=== PATIENT | female | born 1980 | race African-American/Black ===

== ENCOUNTER 2017-07-05 17:28 | Emergency (ER) | payer MEDICAID, OTHER ==
[~2017-07-05 17:28] MED LIST: OXYC-360 PO; PYRI200T4 PO; SULF1TAB47 PO; Z.0.NO CURRENT MEDS
[2017-07-05 17:29] VITALS: BP 133/74; PULSE 115; RESP 14; TEMP 98.2; O2SAT 97
[2017-07-05 18:05] VITALS: RESP 18; O2SAT 98
[2017-07-05 18:15] VITALS: BP_SYST 101; BP_SYST 108; BP_DIAS 67; BP_DIAS 70; BP_DIAS 73; RESP 18
[2017-07-05] MEDS ORDERED: ONDANSETRON HCL 4 MG/2 ML VIAL IV PUSH ONE (18:15)
--- NOTE | 2017-07-05 18:21 | PD ---
HPI Chief Complaint: Medical Clearance Time Seen by Provider: 17:44 Travel History International Travel<30 days: No Contact w/Intl Traveler<30days: No Traveled to known affect area: No History of Present Illness HPI This is a 36-year-old female who presents today with complaints of "wooziness". Patient also reports intermittent nausea. She was concerned that she may be as she last had a period in April. Patient states that she took a home test and it looked like there was a faint line making a positive. She then reports she went to the crisis Center and was told that her test was negative. She reports fullness in her stomach. She denies any true abdominal pain. She reports no vaginal discharge or vaginal bleeding. There is no urinary frequency or dysuria. There are no other complaints time my examination. PFSH Past Medical History Genitourinary: Yes (CERVICAL DYSPLASIA) Influenza Vaccination: No ?: Unknown LMP: 05/04/2017 : 3 Para: 2 Miscarriage: 1 : 0 Past Surgical History Section: Yes (x2) Social History Alcohol Use: No Tobacco Use: Yes (0.5 ppd) Substance Use: No Allergies-Medications (Allergen,Severity, Reaction): Coded Allergies: penicillin G (Unverified Allergy, Severe, Hives, 02/22/17) Reported Meds & Prescriptions Reported Meds & Active Scripts Active No Active Prescriptions or Reported Medications Review of Systems Except as stated in HPI: all other systems reviewed are Neg General / Constitutional: No: Fever, Chills HENT: Positive: Lightheadedness, No: Headaches, Congestion, Neck Stiffness, Neck Pain Cardiovascular: Positive: Palpitations, No: Chest Pain or Discomfort, Irregular Rhythm (occasional) Respiratory: No: Cough, Shortness of Breath Gastrointestinal: Positive: Other ("full feeling" in her abdomen), No: Nausea, Vomiting, Abdominal Pain Genitourinary: No: Frequency, Dysuria, Incontinence Musculoskeletal: No: Weakness, Pain Neurologic: Positive: Dizziness (occasional), No: Weakness, Headache, Paresthesia, Sensory Disturbance Psychiatric: No: Substance Abuse Physical Exam Narrative GENERAL: Well-nourished, well-developed patient,. SKIN: Focused skin assessment warm/dry. HEAD: Normocephalic. EYES: No scleral icterus. No injection or drainage. NECK: Supple, trachea midline. No JVD or lymphadenopathy. CARDIOVASCULAR: Regular rate and rhythm without murmurs, gallops, or rubs. RESPIRATORY: Breath sounds equal bilaterally. No accessory muscle use. GASTROINTESTINAL: Abdomen soft, non-tender, nondistended. MUSCULOSKELETAL: No cyanosis, or edema. BACK: Nontender without obvious deformity. No CVA tenderness. Data Data Last Documented VS Vital Signs Date Time Temp Pulse Resp B/P (MAP) Pulse Ox O2 Delivery O2 Flow Rate FiO2 07/05/17 18:15 79 18 101/70 (80) 82 18 108/67 (81) 90 18 108/73 (85) 07/05/17 18:05 98 Room Air 07/05/17 17:29 98.2 Orders Orders Complete Blood Count With Diff (07/05/17 18:00) Comprehensive Metabolic Panel (07/05/17 18:00) Lipase (07/05/17 18:00) Urinalysis - C+S If Indicated (07/05/17 18:00) Thyroid Stimulating Hormone (07/05/17 18:00) Iv Access Insert/Monitor (07/05/17 18:00) Ecg Monitoring (07/05/17 18:00) Oximetry (07/05/17 18:00) Ed Urine Pregnancytest Poc (07/05/17 18:00) Orthostatic Vital Signs (07/05/17 18:00) Ondansetron Inj (Zofran Inj) (07/05/17 18:15) Labs Laboratory Tests Test 07/05/17 16:07 White Blood Count 6.7 TH/MM3 Red Blood Count 4.08 MIL/MM3 Hemoglobin 11.8 GM/DL Hematocrit 35.8 % Mean Corpuscular Volume 87.8 FL Mean Corpuscular Hemoglobin 28.9 PG Mean Corpuscular Hemoglobin Concent 32.9 % Red Cell Distribution Width 13.8 % Platelet Count 189 TH/MM3 Mean Platelet Volume 8.7 FL Neutrophils (%) (Auto) 39.4 % Lymphocytes (%) (Auto) 46.1 % Monocytes (%) (Auto) 11.7 % Eosinophils (%) (Auto) 2.5 % Basophils (%) (Auto) 0.3 % Neutrophils # (Auto) 2.7 TH/MM3 Lymphocytes # (Auto) 3.1 TH/MM3 Monocytes # (Auto) 0.8 TH/MM3 Eosinophils # (Auto) 0.2 TH/MM3 Basophils # (Auto) 0.0 TH/MM3 CBC Comment DIFF FINAL Differential Comment Urine Color YELLOW Urine Turbidity CLEAR Urine pH 5.5 Urine Specific [place] 1.034 Urine Protein TRACE mg/dL Urine Glucose (UA) NEG mg/dL Urine Ketones NEG mg/dL Urine Occult Blood NEG Urine Nitrite NEG Urine Bilirubin NEG Urine Urobilinogen 2.0 MG/DL Urine Leukocyte Esterase NEG Urine RBC 1 /hpf Urine WBC LESS THAN 1 /hpf Urine Squamous Epithelial Cells 2 /hpf Urine Mucus MANY /lpf Microscopic Urinalysis Comment CULT NOT INDICATED Blood Urea Nitrogen 14 MG/DL Creatinine 0.89 MG/DL Random Glucose 86 MG/DL Total Protein 6.9 GM/DL Albumin 3.5 GM/DL Calcium Level 8.6 MG/DL Alkaline Phosphatase 99 U/L Aspartate Amino Transf (AST/SGOT) 24 U/L Alanine Aminotransferase (ALT/SGPT) 25 U/L Total Bilirubin 0.3 MG/DL Sodium Level 139 MEQ/L Potassium Level 3.8 MEQ/L Chloride Level 106 MEQ/L Carbon Dioxide Level 29.1 MEQ/L Anion Gap 4 MEQ/L Estimat Glomerular Filtration Rate 88 ML/MIN Lipase 296 U/L Thyroid Stimulating Hormone 3rd Gen 0.388 uIU/ML MDM Medical Decision Making Medical Screen Exam Complete: Yes Emergency Medical Condition: Yes Differential Diagnosis Metabolic arrangement versus anemia versus UTI Narrative Course 36 year old female presents today with metastases of wooziness and dizziness and nausea. The patient thought she was . The patient's urine test is negative here. She has a soft abdomen. She denies any vaginal discharge or vaginal bleeding. She does report she reports that she feels her stomach is getting bigger. Labs are pending at this time. She'll be signed out to Dr. Pee Dickson, physician replacing me at the time of shift change. Disposition will be per him. Diagnosis Primary Impression: Nausea Additional Impression: intermittent dizziness Additional Instructions: [place] diet. Drink plenty of fluids. Advance as tolerated. Return if feeling worse or any other reason the concerns her. Med/Other Pt SpecificInfo: Prescription(s) given Scripts No Active Prescriptions or Reported Meds Disposition: 01 DISCHARGE HOME Condition: Stable Jadon Alonso MD Jul 05, 2017 18:21
[2017-07-05 18:32] LABS: AUTOMATED NEUTROPHIL # 2.7 TH/MM3 (1.8-7.7); BASOPHIL % 0.3 % (0.0-2.0); EOSINOPHIL # 0.2 TH/MM3 (0-0.4); EOSINOPHIL % 2.5 % (0.0-4.0); HEMATOCRIT 35.8 % (35.0-46.0); HEMOGLOBIN 11.8 GM/DL (11.6-15.3); LYMPH % 46.1 % (9.0-44.0); LYMPHOCYTE # 3.1 TH/MM3 (1.0-4.8); MEAN CELL VOLUME 87.8 FL (80.0-100.0); MEAN CORPUSCULAR HEMOGLOBIN 28.9 PG (27.0-34.0); MEAN CORPUSCULAR HGB CONC 32.9 % (32.0-36.0); MEAN PLATELET VOLUME 8.7 FL (7.0-11.0); MONO % 11.7 % (0.0-8.0); MONOCYTE # 0.8 TH/MM3 (0-0.9); NEUT % 39.4 % (16.0-70.0); PLATELET COUNT 189 TH/MM3 (150-450); RED BLOOD COUNT 4.08 MIL/MM3 (4.00-5.30); RED CELL DISTRIBUTION WIDTH 13.8 % (11.6-17.2); WHITE BLOOD COUNT 6.7 TH/MM3 (4.0-11.0)
[2017-07-05 18:47] LABS: BILIRUBIN, URINE NEG (NEG); BLOOD, URINE NEG (NEG); GLUCOSE,URINE NEG (NEG); KETONE, URINE NEG (NEG); MUCUS URINE MANY /lpf (OCC); NITRITE,URINE NEG (NEG); PH, URINE 5.5 (5.0-8.5); SQUAMOUS EPITHELIAL CELL URINE 2 /hpf (0-5); URINE COLOR YELLOW (YELLW/STRAW); URINE LEUKOCYTE ESTERASE NEG (NEG)
[2017-07-05 18:48] LABS: ALBUMIN 3.5 GM/DL (3.4-5.0); AST (GOT) 24 U/L (15-37); BICARBONATE 29.1 MEQ/L (21.0-32.0); BLOOD UREA NITROGEN 14 MG/DL (7-18); CALCIUM 8.6 MG/DL (8.5-10.1); CHLORIDE 106 MEQ/L (98-107); CREATININE 0.89 MG/DL (0.50-1.00); GLOMERULAR FILTRATION RATE 88 ML/MIN (>89); GLUCOSE,RANDOM 86 MG/DL (74-106); LIPASE 296 U/L (73-393); SODIUM (NA) 139 MEQ/L (136-145)
[2017-07-05 19:00] LABS: ALKALINE PHOSPHATASE 99 U/L (45-117); ALT (GPT) 25 U/L (10-53); TOTAL BILIRUBIN ADULT 0.3 MG/DL (0.2-1.0); TOTAL PROTEIN 6.9 GM/DL (6.4-8.2)
== END 2017-07-05 20:01 | disposition home or self-care (01) ==
LOC: NEPE 17:28
DX: R11.0 Nausea (principal); R42 Dizziness and giddiness; R00.2 Palpitations; F17.200 Nicotine dependence, unspecified, uncomplicated
CPT/HCPCS: 80053; 81001; 83690; 84443; 84703; 85025; 96374; 99284; J2405